=== PATIENT | male | born 1960 | race Caucasian/White ===

== ENCOUNTER 2016-12-31 12:17 | Emergency (ER) | payer OTHER ==
[~2016-12-31] VITALS: Ht 190.5 cm; Wt 102.1 kg
--- NOTE | ~2016-12-31 | EKG ---
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 : 1960 Requested By: Joseph Green Order Number: [id number] MD: Raheel Strickland Measurements Intervals [place] Rate: 54 P: 37 NC: 159 QRS: -8 QRSD: 106 T: 35 QT: 419 QTc: 398 Interpretive Statements Sinus bradycardia Otherwise no significant abnormality Compared to ECG 12/10/2012 18:52:22 No significant changes Electronically Signed On 01-01-2017 8:01:07 CDT by Raheel Strickland [email or web address] <ELECTRONICALLY SIGNED> By: Raheel Strickland MD, [facility] 01/01/17 0801 1240 1240 Raheel Strickland MD, FACC /EPI
[2016-12-31 12:17] VITALS: BP 173/100
[~2016-12-31 12:17] MED LIST: HYDROCHLOROTHIA25 M2
[2016-12-31 13:02] LABS: HEMATOCRIT 39.8 % (42.0-52.0); HEMOGLOBIN 13.6 gm/dL (14.0-18.0); MCH 31.2 pg (26.0-34.0); MCHC 34.2 g/dL (28.0-37.0); MCV 91.1 fL (80.0-100.0); RBC 4.37 mil/uL (4.50-6.00); WBC 3.8 thou/uL (4.0-11.0)
[2016-12-31 13:06] LABS: ANION GAP 7 mmol/L (7-16); BUN 14 mg/dL (7-18); CALCIUM 9.3 mg/dL (8.5-10.1); CHLORIDE 104 mmol/L (98-107); CO2 27 mmol/L (21-32); CREATININE 0.8 mg/dL (0.7-1.3); GLUCOSE 87 mg/dL (74-106); SODIUM 138 mmol/L (136-145)
[2016-12-31 13:15] LABS: TROPONIN-I < 0.04 ng/mL (<0.04-0.07)
[2016-12-31] MEDS ORDERED: NORVASC5 MG PO (13:27)
== END 2016-12-31 14:03 | disposition home or self-care (01) ==
LOC: ER 12:17
PROVIDERS: Emergency Medicine
DX: I10 Essential (primary) hypertension (principal); F10.99 Alcohol use, unspecified with unspecified alcohol-induced disorder; Z87.891 Personal history of nicotine dependence

== ENCOUNTER 2018-10-23 21:07 | Emergency (ER) | payer OTHER ==
[~2018-10-23] VITALS: Ht 190.5 cm; Wt 109.8 kg
[~2018-10-23 21:07] MED LIST changes: +NORVASC5 MG PO
[2018-10-23 22:40] VITALS: BP 107/67
== END 2018-10-23 22:40 | disposition home or self-care (01) ==
LOC: ER 21:07
DX: S91.312A Laceration without foreign body, left foot, initial encounter (principal); W26.8XXA Contact with other sharp object(s), not elsewhere classified, initial encounter; Y93.89 Activity, other specified; Y92.89 Other specified places as the place of occurrence of the external cause; Y99.8 Other external cause status